=== PATIENT | female | born 1995 | race Caucasian/White ===

== ENCOUNTER 2018-08-19 10:40 | Emergency (ER) | payer OTHER ==
[~2018-08-19] VITALS: Ht 162.6 cm; Wt 65.9 kg
[2018-08-19] MEDS ORDERED: KETOROLAC 60 MG/2 ML VIAL (J1885) IM ONE (11:30)
[2018-08-19] MEDS ORDERED: MOBI4TAB PO (11:49)
[2018-08-19] MEDS ORDERED: CYCL10TA PO (11:49)
[2018-08-19 12:03] VITALS: BP 106/68
== END 2018-08-19 12:09 | disposition home or self-care (01) ==
LOC: M ED 10:40
DX: M54.6 Pain in thoracic spine (principal)
CPT/HCPCS: 81025; 96372; 99284; J1885